=== PATIENT | female | born 1960 | race Hispanic/Latino ===

== ENCOUNTER 2017-03-31 13:44 | Outpatient (CLI) | payer BC ==
--- NOTE | 2017-03-31 17:27 | MMO ---
BILATERAL MAMMOGRAMS: HISTORY: Screening mammography. COMPARISON: 01/06/2012. FINDINGS: Scattered fibroglandular densities are again demonstrated. There is no dominant mass or suspicious calcifications. The study was evaluated with the assistance of computer-aided detection. IMPRESSION: BI-RADS category 1. Negative. Suggest routine followup. POS: CUONG
== END 2017-03-31 13:45 | disposition home or self-care (01) ==
LOC: SCSMAMMO 13:44 → MAMMO 13:45
PROVIDERS: ATTEND Obstetrics & Gynecology
DX: Z12.31 Encounter for screening mammogram for malignant neoplasm of breast (principal)
CPT/HCPCS: 77067; G0202

== ENCOUNTER 2019-03-01 14:21 | Outpatient (CLI) | payer OTHER ==
--- NOTE | 2019-03-01 15:01 | MMO ---
Bilateral MAMMO Bilat Screen [facility]. CLINICAL HISTORY: Patient is 59 years old and is seen for screening. The patient has the following family history of breast cancer: cousin female, maternal. The patient has no personal history of cancer. VIEWS: The views performed were: bilateral craniocaudal with tomosynthesis and bilateral mediolateral oblique with tomosynthesis. FILMS COMPARED: The present examination has been compared to prior imaging studies performed at [facility] on 07/05/2007, 01/06/2011 and 03/31/2017. This study has been interpreted with the assistance of computer-aided detection. MAMMOGRAM FINDINGS: There are scattered fibroglandular densities. There are no suspicious masses, suspicious calcifications, or new areas of architectural distortion. IMPRESSION: THERE IS NO MAMMOGRAPHIC EVIDENCE OF MALIGNANCY. A ROUTINE FOLLOW-UP MAMMOGRAM IN 1 YEAR IS RECOMMENDED. THE RESULTS OF THIS EXAM WERE SENT TO THE PATIENT. ACR BI-RADS Category 1 - Negative MAMMOGRAPHY NOTE: 1. A negative mammogram report should not delay a biopsy if a dominant of clinically suspicious mass is present. 2. Approximately 10% to 15% of breast cancers are not detected by mammography. 3. Adenosis and dense breasts may obscure an underlying neoplasm. Reported by: OMAR ALVARENGA MD Electonically Signed: [id number]
== END 2019-03-01 14:22 | disposition home or self-care (01) ==
LOC: BICMAMMO 14:21
PROVIDERS: ATTEND Family Medicine
DX: Z12.31 Encounter for screening mammogram for malignant neoplasm of breast (principal); Z80.3 Family history of malignant neoplasm of breast
CPT/HCPCS: 77063; 77067

== ENCOUNTER 2019-06-28 10:47 | Outpatient (CLI) | payer OTHER ==
--- NOTE | 2019-06-28 11:46 | ULT ---
EXAM: Left lower extremity venous ultrasound HISTORY: Left lower extremity pain and edema COMPARISON: None TECHNIQUE: Multiplanar grayscale and color Doppler images were obtained in a left lower extremity chelsie ous ultrasound. Spectral analysis of the Doppler waveforms were performed. FINDINGS: The common femoral vein, profunda femoral vein, superficial femoral vein, and popliteal vei n are normal in appearance without visible thrombus. These vessels demonstrate normal compression, flow, and augmentation. The posterior tibial vein and greater saphenous vein are patent without evidence of thrombus. IMPRESSION: No evidence of DVT.
== END 2019-06-28 10:48 | disposition home or self-care (01) ==
LOC: BICULT 10:47
PROVIDERS: ATTEND Family Medicine
DX: M79.605 Pain in left leg (principal); M79.89 Other specified soft tissue disorders

== ENCOUNTER 2020-06-06 08:15 | Outpatient (CLI) | payer OTHER ==
--- NOTE | 2020-06-06 09:24 | MMO ---
Bilateral MAMMO Bilat Screen [facility]. CLINICAL HISTORY: Patient is 60 years old and is seen for screening. The patient has the following family history of breast cancer: cousin female, maternal. The patient has no personal history of cancer. VIEWS: The views performed were: bilateral craniocaudal with tomosynthesis and bilateral mediolateral oblique with tomosynthesis. FILMS COMPARED: The present examination has been compared to prior imaging studies performed at [facility] on 07/05/2007, 01/06/2011, 03/31/2017 and 03/01/2019. This study has been interpreted with the assistance of computer-aided detection. MAMMOGRAM FINDINGS: There are scattered fibroglandular densities. There are no suspicious masses, suspicious calcifications, or new areas of architectural distortion. IMPRESSION: THERE IS NO MAMMOGRAPHIC EVIDENCE OF MALIGNANCY. A ROUTINE FOLLOW-UP MAMMOGRAM IN 1 YEAR IS RECOMMENDED. THE RESULTS OF THIS EXAM WERE SENT TO THE PATIENT. ACR BI-RADS Category 1 - Negative MAMMOGRAPHY NOTE: 1. A negative mammogram report should not delay a biopsy if a dominant of clinically suspicious mass is present. 2. Approximately 10% to 15% of breast cancers are not detected by mammography. 3. Adenosis and dense breasts may obscure an underlying neoplasm. Reported by: KELSEY MCNEILL MD Electonically Signed: [id number]
--- NOTE | 2020-06-06 10:28 | RAD ---
2 VIEW CHEST: Date: 06/06/2020 INDICATION: Dyspnea. No comparison. FINDINGS: The lungs appear clear. No infiltrate identified. Heart and mediastinum unremarkable. Vascular markin gs normal. Osseous structures are unremarkable. IMPRESSION: No acute findings. POS: AGW
== END 2020-06-06 08:16 | disposition home or self-care (01) ==
LOC: BICMAMMO 08:15
PROVIDERS: ATTEND Family Medicine
DX: Z12.31 Encounter for screening mammogram for malignant neoplasm of breast (principal); R06.09 Other forms of dyspnea; Z80.3 Family history of malignant neoplasm of breast
CPT/HCPCS: 71046; 77063; 77067

== ENCOUNTER 2020-12-10 14:15 | Outpatient (CLI) | payer OTHER | END 2020-12-10 14:16 | disposition home or self-care (01) | LOC: SCSRAD 14:15 | PROVIDERS: ATTEND Family Medicine | DX: R50.9 Fever, unspecified (principal); R91.8 Other nonspecific abnormal finding of lung field | CPT/HCPCS: 71046 ==

== ENCOUNTER 2023-12-07 14:48 | Outpatient (CLI) | payer BC | END 2023-12-07 14:49 | disposition home or self-care (01) | LOC: BICMAMMO 14:48 | PROVIDERS: ATTEND Family Medicine | DX: Z12.31 Encounter for screening mammogram for malignant neoplasm of breast (principal); Z80.3 Family history of malignant neoplasm of breast | CPT/HCPCS: 77063; 77067 ==

== ENCOUNTER 2023-12-23 13:40 | Outpatient (CLI) | payer BC | END 2023-12-23 13:41 | disposition home or self-care (01) | LOC: BICRAD 13:40 | PROVIDERS: ATTEND Family Medicine | DX: S39.92XA Unspecified injury of lower back, initial encounter (principal); M25.562 Pain in left knee; M54.50 Low back pain, unspecified; M47.816 Spondylosis without myelopathy or radiculopathy, lumbar region | CPT/HCPCS: 72100; 72220 ==